=== PATIENT | male | born 1990 | race Caucasian/White ===

== ENCOUNTER 2016-10-29 00:02 | Emergency (ER) | payer OTHER ==
[~2016-10-29] VITALS: Ht 180.3 cm; Wt 90.9 kg
[2016-10-29 00:10] VITALS: BP 145/79; TEMP 97.9
[2016-10-29] MEDS ORDERED: ADDERALL XR20 MG PO (00:13)
[2016-10-29 02:01] VITALS: PULSE 78
== END 2016-10-29 02:05 | disposition home or self-care (01) ==
LOC: COL.ER 00:02
DX: S01.511A Laceration without foreign body of lip, initial encounter (principal); W01.198A Fall on same level from slipping, tripping and stumbling with subsequent striking against other object, initial encounter; Y92.009 Unspecified place in unspecified non-institutional (private) residence as the place of occurrence of the external cause